=== PATIENT | male | born 1990 | race Caucasian/White ===

== ENCOUNTER 2017-08-10 11:30 | Emergency (ER) | payer OTHER ==
[~2017-08-10] VITALS: Ht 180.3 cm; Wt 116.4 kg
[~2017-08-10 11:30] MED LIST: FLEXERIL10 MG PO; IBUPROFEN800 MG PO; LIDOCAINE20 MG/1 M5 PO; MOBIC7.5 MG PO; MOTRIN600 MG PO; MUPIROCIN15 GM TP; NAPROSYN500 MG PO; NAPROXEN500 MG PO; NO HOME MEDS; NO MEDS; NOHOMEMEDS; NORCO 5/3251 TABLET PO; NORCO 7.5/321 TABLET PO; PEN-VEE K,VEET500 MG PO; PENICILLIN PO; PREDNISONE20 MG PO; TRAMADOL HCL50 MG PO; ULTRAM50 MG PO; VICODIN 5-3001 EACH PO
[2017-08-10] MEDS ORDERED: PEN-VEE K,VEET500 MG PO (14:06)
[2017-08-10 14:15] VITALS: BP 146/70
== END 2017-08-10 14:16 | disposition home or self-care (01) ==
LOC: EME 11:30
DX: K04.7 Periapical abscess without sinus (principal); K02.9 Dental caries, unspecified; Z88.5 Allergy status to narcotic agent
CPT/HCPCS: 99281; 99283

== ENCOUNTER 2018-02-19 13:37 | Emergency (ER) | payer OTHER ==
[~2018-02-19] VITALS: Ht 175.3 cm; Wt 112.8 kg
[2018-02-19 14:12] LABS: HEMATOCRIT 49.4 % (38.0-50.0); HEMOGLOBIN 17.4 G/DL (12.5-16.6); MCH 31.8 PG (29.0-34.0); MCHC 35.2 G/DL (30.0-36.0); MCV 90.1 FL (86-99); PLATELET COUNT 281 K/uL (156-360); RBC DIS.WIDTH-CV 11.7 % (11.8-14.6); RBC DIS.WIDTH-SD 38.7 % (39-53); RED BLOOD COUNT 5.48 M/uL (4.00-5.50)
[2018-02-19 14:20] LABS: ALBUMIN 4.7 g/dL (3.2-4.8)
[2018-02-19 14:21] LABS: CHLORIDE 104 mEq/L (99-109); POTASSIUM 3.6 mEq/L (3.7-5.4); SODIUM 139 mEq/L (136-147)
[2018-02-19 14:23] LABS: GLUCOSE 125 mg/dL (70-99); TOTAL PROTEIN 8.6 g/dL (6.4-8.3)
[2018-02-19 14:26] LABS: ALKALINE PHOSPHATASE 85 IU/L (3-129)
[2018-02-19 14:27] LABS: CREATININE 0.8 mg/dL (0.6-1.3); GFR ESTIMATE (CALCULATED) > 59 mL/min/ (58.99-99999)
[2018-02-19 14:28] LABS: AST (GOT) 24 IU/L (2-34); UREA NITROGEN (BUN) 7 mg/dL (9-23)
[2018-02-19 14:30] LABS: ALT (GPT) 45 IU/L (3-49)
[2018-02-19 15:09] LABS: APPEARANCE CLEAR ((CLEAR)); BILIRUBIN NEGATIVE; BLOOD SMALL; COLOR STRAW ((YELLOW)); GLUCOSE (STRIP) NEGATIVE; KETONES NEGATIVE; LEUKOCYTES NEGATIVE; NITRITE NEGATIVE; PROTEIN (STRIP) NEGATIVE; SPECIFIC GRAVITY 1.004 (1.000-1.030); UROBILINOGEN 0.2 MG/DL (0.2-1.0)
[2018-02-19 15:19] LABS: BACTERIA NONE SEEN /HPF; EPITHELIAL CELLS RARE /HPF; MUCUS NONE SEEN /LPF; RED BLOOD CELLS 0-5 /HPF (0-5); UCUL ADDED? NO; WHITE BLOOD CELLS 0-5 /HPF (0-5)
[2018-02-19 16:18] LABS: LIPASE 15 U/L (1.0-51.0)
[2018-02-19] MEDS ORDERED: ZANTAC150 MG PO (16:21)
[2018-02-19 16:27] VITALS: BP 130/82
== END 2018-02-19 16:28 | disposition home or self-care (01) ==
LOC: EME 13:37
DX: R10.13 Epigastric pain (principal); Z88.5 Allergy status to narcotic agent
CPT/HCPCS: 80053; 81003; 83690; 85027; 93005; 99281; 99284